=== PATIENT | female | born 1980 | race Caucasian/White ===

== ENCOUNTER 2022-10-09 05:00 | Day surgery (SDC) | payer OTHER ==
[~2022-10-09] VITALS: Ht 165.1 cm; Wt 76.7 kg
[~2022-10-09 05:00] MED LIST: NAPR500T14 PO; PRENATAL CAPLE1 EACH PO
[2022-10-09] MEDS ORDERED: PERCOCET 5-3251 EACH PO (10:09)
[2022-10-09] MEDS ORDERED: PEPCID AC20 MG PO (10:09)
[2022-10-09] MEDS ORDERED: ZOFRAN8 MG PO (10:09)
[2022-10-09] MEDS ORDERED: DICLOFENAC SODI75 MG PO (10:10)
== END 2022-10-09 12:40 | disposition home or self-care (01) ==
LOC: CIR.AMB 05:00
PROVIDERS: ATTEND Surgery
DX: K80.10 Calculus of gallbladder with chronic cholecystitis without obstruction (principal); R14.0 Abdominal distension (gaseous); R14.1 Gas pain; I10 Essential (primary) hypertension; Z20.822 Contact with and (suspected) exposure to COVID-19